=== PATIENT | male | born 1980 | race African-American/Black ===

== ENCOUNTER 2020-06-27 06:55 | Emergency (ER) | payer MEDICAID ==
[~2020-06-27] VITALS: Ht 180.3 cm; Wt 90.7 kg
[2020-06-27 07:20] VITALS: BP 110/79
--- NOTE | 2020-06-27 07:44 | Emergency Room Report ---
History of Present Illness General Chief Complaint: Abdominal Pain Source: Patient Present Illness HPI Disclaimer: Please note that this report is being documented using [employer] technology. This can lead to erroneous entry secondary to incorrect interpretation by the dictating instrument. HPI: 40-year-old male no reported medical history presents for abdominal cramping. Patient reports over the past 2 weeks he has had abdominal cramping, increased loose and mucousy stools without blood. Notes increased flatulence belching and GERD-like symptoms. Currently only mild abdominal discomfort which he rates as 3/10. Denies dysuria hematuria. Denies fever or chills. Denies nausea or vomiting. He typically eats a plant-based diet but because of recent family stress he has been eating mostly fast food. He feels fatigued. Not sleeping well. Denies chest pain, palpitations, shortness of breath, cough, URI symptoms otherwise. Denies personal or family history of inflammatory bowel disease, irritable bowel syndrome, colon cancer or other bowel diseases. Denies drug or alcohol use. 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 EOMI. Cardiovascular: RRR. S1 and S2 normal. No murmur appreciated Resp: Normal work of breathing. No cough, wheezing or crackles appreciated Abdomen: Abdomen is soft, nondistended. Nontender Skin: Intact. No abrasions, laceration or rash over the exposed skin MSK: Normal tone and bulk. Moving all extremities. No obvious deformity. Neuro: Awake and alert. Mentating appropriately. Medical Decision Making Diagnostic Impression: Primary Impression: Irritable bowel syndrome (IBS) ER Course Is a 40-year-old male presenting with abdominal cramping 2 weeks. Differential includes not limited to gastritis, gastroenteritis, pancreatitis, cholecystitis, food sensitivities, irritable bowel syndrome, inflammatory bowel disease, peptic ulcer among others. His belly is soft, no pain at this time and overall he is well-appearing. Labs are largely unremarkable aside from slightly elevated creatinine though BUN is within normal limits. We will follow-up for this on an outpatient basis. I suspect this is largely dietary and stress related. Patient had sudden change in his diet from completely plant-based to mostly fast food. Recommended that he return to his previous diet and follow-up with food sensitivity studies on outpatient basis as well as follow-up with gastroenterology regarding colonoscopy if needed. Well-appearing stable for outpatient follow-up. Return precautions discussed. He understands and agrees with this treatment plan. Laboratory Tests Test 06/27/20 07:47 White Blood Count 7.7 K/UL (4.8-10.8) Red Blood Count 5.36 M/UL (4.70-6.10) Hemoglobin 15.9 G/DL (14.2-18.0) Hematocrit 48.9 % (42.0-52.0) Mean Corpuscular Volume 91 FL (80-99) Mean Corpuscular Hemoglobin 29.6 PG (27.0-31.0) Mean Corpuscular Hemoglobin Concent 32.4 G/DL (32.0-36.0) Red Cell Distribution Width 12.5 % (11.6-14.8) Platelet Count 253 K/UL (150-450) Mean Platelet Volume 7.2 FL (6.5-10.1) Neutrophils (%) (Auto) 66.6 % (45.0-75.0) Lymphocytes (%) (Auto) 24.1 % (20.0-45.0) Monocytes (%) (Auto) 7.2 % (1.0-10.0) Eosinophils (%) (Auto) 1.1 % (0.0-3.0) Basophils (%) (Auto) 0.9 % (0.0-2.0) Sodium Level 140 MMOL/L (136-145) Potassium Level 3.7 MMOL/L (3.5-5.1) Chloride Level 104 MMOL/L (98-107) Carbon Dioxide Level 28 MMOL/L (21-32) Anion Gap 8 mmol/L (5-15) Blood Urea Nitrogen 16 mg/dL (7-18) Creatinine 1.5 MG/DL (0.55-1.30) H Estimated Glomerular Filtration Rate > 60 mL/min (>60) Glucose Level 93 MG/DL (74-106) Calcium Level 9.7 MG/DL (8.5-10.1) Total Bilirubin 0.8 MG/DL (0.2-1.0) Aspartate Amino Transferase (AST) 28 U/L (15-37) Alanine Aminotransferase (ALT) 35 U/L (12-78) Alkaline Phosphatase 51 U/L (46-116) Total Protein 7.8 G/DL (6.4-8.2) Albumin 4.4 G/DL (3.4-5.0) Globulin 3.4 g/dL Albumin/Globulin Ratio 1.3 (1.0-2.7) Lipase 131 U/L (73-393) Last Vital Signs Date Time Temp Pulse Resp B/P (MAP) Pulse Ox O2 Delivery O2 Flow Rate FiO2 06/27/20 07:07 98.1 86 18 110/79 (89) 100 Room Air Disposition: HOME, SELF-CARE Condition: Stable Referrals: [facility] (PCP) Bjorn Nguyen MD Jun 27, 2020 07:44
[2020-06-27 08:33] LABS: BASOPHILS % (AUTO) 0.9 % (0.0-2.0); EOSINOPHILS % (AUTO) 1.1 % (0.0-3.0); HEMATOCRIT 48.9 % (42.0-52.0); HEMOGLOBIN 15.9 G/DL (14.2-18.0); LYMPHOCYTES % (AUTO) 24.1 % (20.0-45.0); MEAN CORPUSCULAR VOLUME 91 FL (80-99); MONOCYTES % (AUTO) 7.2 % (1.0-10.0); NEUTROPHILS % (AUTO) 66.6 % (45.0-75.0); PLATELET COUNT 253 K/UL (150-450); RED BLOOD COUNT 5.36 M/UL (4.70-6.10); RED CELL DISTRIBUTION WIDTH 12.5 % (11.6-14.8); WHITE BLOOD COUNT 7.7 K/UL (4.8-10.8)
[2020-06-27 08:46] LABS: ANION GAP 8 mmol/L (5-15); BLOOD UREA NITROGEN 16 mg/dL (7-18); CALCIUM 9.7 MG/DL (8.5-10.1); CARBON DIOXIDE 28 MMOL/L (21-32); CHLORIDE 104 MMOL/L (98-107); CREATININE 1.5 MG/DL (0.55-1.30); POTASSIUM 3.7 MMOL/L (3.5-5.1); SODIUM 140 MMOL/L (136-145)
[2020-06-27 08:58] LABS: ALANINE AMINOTRANSFERASE 35 U/L (12-78); ALBUMIN 4.4 G/DL (3.4-5.0); ALBUMIN/GLOBULIN RATIO 1.3 (1.0-2.7); ALKALINE PHOSPHATASE 51 U/L (46-116); ASPARTATE AMINO TRANSFERASE 28 U/L (15-37); BILIRUBIN,TOTAL 0.8 MG/DL (0.2-1.0)
[2020-06-27 09:14] VITALS: BP 134/76
== END 2020-06-27 09:15 | disposition home or self-care (01) ==
LOC: EMR 07:19
DX: K58.9 Irritable bowel syndrome, unspecified (principal)
CPT/HCPCS: 36415; 80053; 83690; 85025; Z7502; 99283

== ENCOUNTER 2020-07-06 01:45 | Emergency (ER) | payer MEDICAID ==
[~2020-07-06] VITALS: Ht 180.3 cm; Wt 90.7 kg
[2020-07-06 01:51] VITALS: BP 148/82
[2020-07-06 02:00] VITALS: BP 148/82
[2020-07-06] MEDS ORDERED: DICYCLOMINE HCL10 MG ORAL (02:18)
--- NOTE | 2020-07-06 02:18 | Emergency Room Report ---
History of Present Illness General Chief Complaint: General Complaint Source: Patient, Medical Record Present Illness HPI This is a 40-year-old male with no past medical history. He presents with chief complaint of shoulder and pain prior to defecation. He was here last week and was given diagnosis of irritable bowel syndrome. He been reading about it on and in it and was concerned that it may be something more serious. He denies any bleeding. Denies any nausea or vomiting. Sometimes he said his stool is mucousy in nature. Sometimes he gets diarrhea and alternating with constipation. He denies any urinary complaint. He denies any discharge. 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: No Patient History Past Medical History: none, see triage record, old chart reviewed Past Surgical History: none Pertinent Family History: none Social History: Denies: smoking Immunizations: other Reviewed Nursing Documentation: PMH: Agreed; PSxH: Agreed Nursing Documentation-PMH Past Medical History: No Stated History Review of Systems Eye: Denies: eye pain, blurred vision ENT: Denies: ear pain, nose congestion, throat swelling Respiratory: Denies: cough, shortness of breath Cardiovascular: Denies: chest pain, palpitations Gastrointestinal: Reports: abdominal pain; Denies: diarrhea, nausea, vomiting Musculoskeletal: Denies: back pain, joint pain Skin: Denies: rash Neurological: Denies: headache, numbness Endocrine: Denies: increased thirst, increased urine Hematologic/Lymphatic: Denies: easy bruising All Other Systems: negative except mentioned in HPI Physical Exam Vital Signs Date Time Temp Pulse Resp B/P (MAP) Pulse Ox O2 Delivery O2 Flow Rate FiO2 07/06/20 01:51 98.4 85 20 148/82 (104) 98 Room Air Vitals unremarkable Sp02 EP Interpretation: reviewed, normal General Appearance: well appearing, no apparent distress, alert Head: normocephalic, atraumatic Eyes: bilateral eye PERRL, bilateral eye EOMI ENT: hearing grossly normal, normal pharynx Neck: full range of motion, supple, no meningismus Respiratory: chest non-tender, lungs clear, normal breath sounds Cardiovascular #1: regular rate, rhythm, no murmur Gastrointestinal: normal bowel sounds, non tender, no mass, no organomegaly, no bruit, non-distended Musculoskeletal: back normal, normal range of motion, gait/station normal Psychiatric: mood/affect normal Medical Decision Making Diagnostic Impression: Primary Impression: Irritable bowel syndrome (IBS) Qualified Codes: K58.9 - Irritable bowel syndrome without diarrhea ER Course He secondary to herbal bowel syndrome. He has no evidence of inflammatory bowel disease. I do recommend outpatient follow-up with a GI doctor for colonoscopy. His symptoms may be exacerbated from anxiety. He said he is under a lot of stress lately. I see no evidence of acute abdomen. No evidence of obstruction. He is asymptomatic right now. Last Vital Signs Date Time Temp Pulse Resp B/P (MAP) Pulse Ox O2 Delivery O2 Flow Rate FiO2 07/06/20 02:00 98.4 20 148/82 98 Room Air 07/06/20 02:00 85 Status: unchanged Disposition: HOME, SELF-CARE Condition: Stable Scripts Dicyclomine Hcl* (DICYCLOMINE HCL*) 10 Mg Capsule 10 MG ORAL TID, #30 CAP Prov: Danyel Fierro MD 07/06/20 Referrals: [facility] (PCP) Additional Instructions: Follow-up with your doctor in 1 to 2 weeks. You may benefit from a referral to see a GI doctor for colonoscopy. Return if symptoms worsen. Danyel Fierro MD Jul 06, 2020 02:18
--- NOTE | 2020-07-06 02:24 | NUR ---
pt aox3 given and understands discharge isntructions. v/s stable. pt in no distress. will continue to monitor pts
== END 2020-07-06 02:25 | disposition home or self-care (01) ==
LOC: EMR 02:04
DX: K58.9 Irritable bowel syndrome, unspecified (principal); M25.519 Pain in unspecified shoulder
CPT/HCPCS: 99282